=== PATIENT | female | born 1960 | race Caucasian/White ===

== ENCOUNTER 2019-07-06 08:08 | Emergency (ER) | payer OTHER ==
[~2019-07-06] VITALS: Ht 157.5 cm; Wt 76.2 kg
[2019-07-06 08:08] VITALS: BP_SYST 104
--- NOTE | 2019-07-06 08:08 | NUR ---
BROUGHT BACK TO BED #3 AND TRIAGED. REPORT GIVEN TO MICKEY
--- NOTE | 2019-07-06 08:15 | NUR ---
PT CAME TO ER FOR COUGH X2 MONTHS, UNABLE TO SEE PRIMARY CARE. PT HX SMOKING FOR 40 YEARS ONE PACK A DAY AND ASTHMA.
--- NOTE | 2019-07-06 08:20 | NUR ---
ER at bedside examining patient.
[2019-07-06 09:30] VITALS: BP_SYST 104
--- NOTE | 2019-07-06 09:30 | NUR ---
Patient given written and verbal discharge instructions and verbalizes understanding. ER MD discussed with patient the results and treatment provided. Patient in stable condition. ID arm band removed. Rx of MEDROL given. Patient educated on pain management and to follow up with PMD. Pain Scale 0/10. Opportunity for questions provided and answered. Medication side effect fact sheet provided.
== END 2019-07-06 09:30 | disposition home or self-care (01) ==
LOC: SED 08:08
DX: R05 Cough (principal); J45.909 Unspecified asthma, uncomplicated
CPT/HCPCS: 71046-TC; 99283

== ENCOUNTER 2023-06-28 16:47 | Emergency (ER) | payer BC, MEDICAID, OTHER ==
[~2023-06-28] VITALS: Ht 160 cm; Wt 78.9 kg
[2023-06-28 17:58] VITALS: BP_SYST 136; PULSE 83; RESP 19; TEMP 98.3; O2SAT 96
[2023-06-28] MEDS: IPRATROPIUM/ALBUTEROL SULFATE 3 ML AMPUL.NEB (DUONEB) INH ONE (17:58)
[2023-06-28 18:31] LABS: INFLUENZA TYPE A Negative (NEGATIVE); INFLUENZA TYPE B NEGATIVE (NEGATIVE)
[2023-06-28] MEDS: guaiFENesin/DEXTROMETHORPHAN 10 ML UDC PO ONE (18:34)
[2023-06-28] MEDS ORDERED: ALBMDI INH (19:34)
[2023-06-28] MEDS ORDERED: BENZ100C92 PO (19:34)
[2023-06-28] MEDS ORDERED: ZIT250 PO (19:34)
[2023-06-28] MEDS ORDERED: ALBU2.5V7 INH (19:34)
[2023-06-28 19:40] VITALS: BP_SYST 133; PULSE 80; RESP 18; TEMP 98.2; O2SAT 98
== END 2023-06-28 19:40 | disposition home or self-care (01) ==
LOC: SED 16:47
DX: J45.901 Unspecified asthma with (acute) exacerbation (principal); R05.9 Cough, unspecified; R09.81 Nasal congestion; Z79.899 Other long term (current) drug therapy; Z20.822 Contact with and (suspected) exposure to COVID-19
CPT/HCPCS: 36415; 94640; 99283